=== PATIENT | female | born 1985 | race African-American/Black ===

== ENCOUNTER 2016-08-30 23:41 | Emergency (ER) | payer MEDICAID ==
[~2016-08-30] VITALS: Ht 165.1 cm; Wt 115.7 kg
[~2016-08-30 23:41] MED LIST: IBUP800T24 PO
[2016-08-30 23:42] VITALS: BP 142/98
== END 2016-08-31 01:00 | disposition left against medical advice (07) ==
LOC: EDBD 23:41 → ER 23:41
DX: R51 Headache (principal); Z53.21 Procedure and treatment not carried out due to patient leaving prior to being seen by health care provider; Y08.89XA Assault by other specified means, initial encounter; Y93.89 Activity, other specified; Y99.8 Other external cause status; Y92.89 Other specified places as the place of occurrence of the external cause